=== PATIENT | male | born 1975 | race Caucasian/White ===

== ENCOUNTER 2018-09-21 08:13 | Emergency (ER) | payer BC, MEDICAID ==
[~2018-09-21] VITALS: Ht 170.2 cm; Wt 81.8 kg
[2018-09-21 08:16] VITALS: BP 142/90; Ht 170.2 cm; Wt 81.8 kg
[2018-09-21 08:39] LABS: APPEARANCE CLEAR (CLEAR); BILIRUBIN NEGATIVE (NEGATIVE); COLOR YELLOW (YELLOW); GLUCOSE NEGATIVE (NEGATIVE); KETONE NEGATIVE (NEGATIVE); NITRITE NEGATIVE (NEGATIVE); PROTEIN NEGATIVE (NEGATIVE); UROBILINOGEN NORMAL (NORMAL)
[2018-09-21] MEDS ORDERED: NAPROSYN500 MG PO (08:49)
[2018-09-21] MEDS ORDERED: TYLENOL W/CODEI1 TAB PO (08:49)
== END 2018-09-21 08:59 | disposition home or self-care (01) ==
LOC: D.ER 08:13
PROVIDERS: Family Medicine
DX: M54.5 Low back pain (principal)

== ENCOUNTER 2019-02-03 17:37 | Emergency (ER) | payer MEDICAID ==
[~2019-02-03] VITALS: Ht 170.2 cm; Wt 77.3 kg
[~2019-02-03 17:37] MED LIST: NAPROSYN500 MG PO; TYLENOL W/CODEI1 TAB PO
[2019-02-03 17:41] VITALS: Ht 170.2 cm; Wt 77.3 kg
[2019-02-03 19:07] LABS: BASOPHILS 0.2 % (0-2); EOSINOPHILS 2.2 % (0-7); HEMATOCRIT 42.2 % (42.0-54.0); HEMOGLOBIN 15.2 g/dL (13.5-17.5); IMMATURE GRANULOCYTES 0.2 % (0-5); LYMPHOCYTES 31.7 % (15-50); MCH 31.1 pg (26.0-34.0); MCV 86.3 fL (80.0-100.0); MEAN PLATELET VOLUME 9.5 fL (7.4-10.4); MONOCYTES 5.9 % (2-11); NEUTROPHILS 59.8 % (40-80); PLATELET COUNT 291 10x3/uL (130-400); RBC 4.89 10x6/uL (4.20-6.10); RDW 13.3 % (11.5-14.5); WBC 8.4 10x3/uL (4.8-10.8)
[2019-02-03] MEDS ORDERED: EPIPEN 2-P0.3 MG/0.3 IM (19:11)
[2019-02-03] MEDS ORDERED: PREDNISONE50 MG PO (19:11)
[2019-02-03 19:42] LABS: ALBUMIN 3.4 g/dL (3.4-5.0); ALKALINE PHOSPHATASE 92 U/L (46-116); ALT (SGPT) 31 U/L (10-68); BILIRUBIN - TOTAL 0.21 mg/dL (0.2-1.3); CALC OSMOLALITY 286 mosm/kg (275-300); CALCIUM 7.9 mg/dL (8.5-10.1); CARBON DIOXIDE 21.7 mmol/L (21.0-32.0); CHLORIDE - SERUM 108 mmol/L (98-107); CREATININE - SERUM 0.8 mg/dL (0.6-1.3); GLUCOSE 121 mg/dL (74-106); MAGNESIUM - SERUM 2.1 mg/dL (1.8-2.4); POTASSIUM - SERUM 3.6 mmol/L (3.5-5.1); SODIUM 144 mmol/L (136-145); UREA NITROGEN 11 mg/dL (7-18); eGFR NON AFRICAN AMERICAN > 90 mL/min (90-120)
[2019-02-03 19:52] VITALS: BP 114/67
== END 2019-02-03 20:16 | disposition home or self-care (01) ==
LOC: D.ER 17:37
PROVIDERS: Family Medicine
DX: T78.40XA Allergy, unspecified, initial encounter (principal); F10.129 Alcohol abuse with intoxication, unspecified

== ENCOUNTER 2019-10-22 04:30 | Emergency (ER) | payer MEDICAID ==
[~2019-10-22] VITALS: Ht 170.2 cm; Wt 79.5 kg
[~2019-10-22 04:30] MED LIST changes: +EPIPEN 2-P0.3 MG/0.3 IM; +PREDNISONE50 MG PO
[2019-10-22 04:37] VITALS: BP 154/105; Ht 170.2 cm; Wt 79.5 kg
[2019-10-22] MEDS ORDERED: ACETAMINOPHEN500 M1 PO (04:47)
[2019-10-22] MEDS ORDERED: IBUPROFEN800 MG PO (04:47)
== END 2019-10-22 05:19 | disposition home or self-care (01) ==
LOC: D.ER 04:30
DX: M25.521 Pain in right elbow (principal); V89.2XXA Person injured in unspecified motor-vehicle accident, traffic, initial encounter; Y93.9 Activity, unspecified; Y92.9 Unspecified place or not applicable; R60.9 Edema, unspecified

== ENCOUNTER 2020-10-17 08:38 | Emergency (ER) | payer BC ==
[~2020-10-17] VITALS: Ht 170.2 cm; Wt 77.3 kg
[~2020-10-17 08:38] MED LIST changes: +ACETAMINOPHEN500 M1 PO; +IBUPROFEN800 MG PO
[2020-10-17 08:52] VITALS: Ht 170.2 cm; Wt 77.3 kg
[2020-10-17 09:12] LABS: BASOPHILS 0.4 % (0-2); EOSINOPHILS 3.1 % (0-7); HEMATOCRIT 43.4 % (42.0-54.0); HEMOGLOBIN 15.1 g/dL (13.5-17.5); LYMPHOCYTES 13.6 % (15-50); MCH 30.8 pg (26.0-34.0); MCHC 34.8 g/dL (31.0-37.0); MCV 88.6 fL (80.0-100.0); NEUTROPHILS 74.9 % (40-80); PLATELET COUNT 292 10x3/uL (130-400); RBC 4.89 10x6/uL (4.20-6.10); RDW 13.4 % (11.5-14.5); WBC 9.9 10x3/uL (4.8-10.8)
[2020-10-17 09:38] LABS: CALC OSMOLALITY 272 mosm/kg (275-300); CALCIUM 8.5 mg/dL (8.5-10.1); CARBON DIOXIDE 26.3 mmol/L (21.0-32.0); CHLORIDE - SERUM 99 mmol/L (98-107); CREATININE - SERUM 0.9 mg/dL (0.6-1.3); GLUCOSE 116 mg/dL (74-106); POTASSIUM - SERUM 3.3 mmol/L (3.5-5.1); SODIUM 136 mmol/L (136-145); UREA NITROGEN 13 mg/dL (7-18); eGFR NON AFRICAN AMERICAN > 90 mL/min (90-120)
[2020-10-17 09:44] LABS: ALBUMIN 3.6 g/dL (3.4-5.0); ALKALINE PHOSPHATASE 88 U/L (30-120); ALT (SGPT) 51 U/L (10-68); AMYLASE - SERUM 30 U/L (25-115); BILIRUBIN - TOTAL 0.64 mg/dL (0.2-1.3); LIPASE 79 U/L (73-393)
[2020-10-17] MEDS ORDERED: ZOFRAN ODT4 MG/UDTAB PO (10:58)
[2020-10-17 11:46] VITALS: BP 113/83
== END 2020-10-17 11:48 | disposition home or self-care (01) ==
LOC: D.ER 08:38
PROVIDERS: Family Medicine
DX: A08.4 Viral intestinal infection, unspecified (principal); R11.2 Nausea with vomiting, unspecified; F10.21 Alcohol dependence, in remission; F17.210 Nicotine dependence, cigarettes, uncomplicated